=== PATIENT | male | born 1940 | race Caucasian/White ===

== ENCOUNTER → 2018-07-22 | Outpatient (CLI) | payer MEDICARE ==
--- NOTE | 2018-07-23 13:38 | PE ---
Nuclear medicine PET/CT HISTORY: Solitary pulmonary nodule Patient received 15.2 mCi F-18 FDG intravenously and delayed scanning was performed from the skull ba se to the mid thighs. Localization and attenuation correction CT scan was performed. No comparisons available Neck and CHEST: There is no cervical, mediastinal, axillary, or hilar adenopathy. Calcified pleural p laques are present suggestive of asbestos related disease. There are proximal bands within the lungs, somewhat nodular density in the right upper lobe towards the apex on axial image 51 measures 9 mm in size, there is no associated hypermetabolic uptake. Posterior lateral to the aorta and there is a fo cus with some suggestion of air bronchograms and pleural-based soft tissue density measuring approxim ately 18 mm but without associated hypermetabolic uptake. No pleural or pericardial effusion. There a re coronary artery calcifications. ABDOMEN: No evident liver mass. Patient is post cholecystectomy. Large cystic foci associated with th e kidneys. No retroperitoneal adenopathy or ascites. Atheromatous changes are present within the aort a. Surgical clips present in the right groin region. Small recurrent right inguinal hernia, left ingu inal hernia also noted in both containing some fat. Patient is post prostatectomy surgical clips pres ent in the pelvis. Osseous structures show degenerative changes at the right sacroiliac joint, there is facet arthropath y and degenerative disc change in the lumbar spine. Mild hypermetabolic uptake is noted in the right ilium, questionable asymmetric density in the bone at this level, SUV is 2.6. IMPRESSION: Findings compatible with asbestos related disease. No suspicious hypermetabolic uptake wi thin the chest. Mild uptake noted in the right ilium, follow-up MRI or bone scan could be performed t o assess for stability. No definitive mass present. Postop changes and additional findings above.
== END ==
LOC: RADPETMAIN 14:04
PROVIDERS: ATTEND Family Medicine
DX: R91.8 Other nonspecific abnormal finding of lung field (principal); Z77.090 Contact with and (suspected) exposure to asbestos
CPT/HCPCS: 78815; A9552

== ENCOUNTER 2022-06-17 09:03 | Day surgery (SDC) | payer MEDICARE ==
[~2022-06-17 09:03] MED LIST: ATROPINE SULFATE 0.4 MG/ML 1 ML VIAL IM ONE; LIDOCAINE VISCOUS 300 MG/15 ML CUP MUCOUS MEM ONE; SODIUM CHLORIDE 0.9% 1,000 ML IV SCH
[2022-06-17] MEDS ORDERED: LACTATED RINGERS 1,000 ML IV SCH (09:29)
[2022-06-17] MEDS ORDERED: ONDANSETRON 4 MG/2 ML VIAL IVP PRN (09:29)
[2022-06-17] MEDS ORDERED: DEXAMETHASONE SOD PHOSPHATE 4 MG/ML 1 ML VIAL IV ONE (09:29)
[2022-06-17] MEDS ORDERED: fentaNYL (PF) 50 MCG/ML 2 ML AMP IV PRN (09:29)
[2022-06-17] MEDS ORDERED: LIDOCAINE 1% (10MG/ML) FOR IV START INTRADERMA PRN (09:29)
[2022-06-17 09:51] LABS: Glucose,Whole Blood 94 mg/dL (70-110)
--- NOTE | 2022-06-17 10:43 | CT ---
EXAMINATION TYPE: CT Chest lisy Frederick Protocol DATE OF EXAM: 06/17/2022 COMPARISON: PET/CT 07/22/2018 HISTORY: pre-op bronch CT DLP: 635 mGycm Automated exposure control for dose reduction was used. FINDINGS: Exam is for bronchoscopy planning and not for diagnostic purposes. Bilateral calcified pleural plaques redemonstrated. Suggestive of asbestosis related disease. No pneu mothorax or pleural effusion. Development of medial left lower lobe consolidation with air bronchogra ms. This is in similar location to previously demonstrated nodular density. Patchy scattered subpleur al reticular opacities redemonstrated. Similar biapical pleural-parenchymal scarring and paraseptal e mphysematous changes. The airway appears patent. Scattered calcification of the aorta. The heart is normal size without pericardial effusion. Coronary arterial calcifications. No mediastinal or hilar adenopathy identified. Small hiatal hernia. Visualization of right superior pole renal 5.9 cm cyst. Additional smaller syste m showed within the left kidney. Postcholecystectomy changes. No acute osseous abnormality. No aggressive osseous lesion. Flowing anterior osteophytosis of the tho racic spine consistent with DISH. IMPRESSION: ABOVE.
[2022-06-17] MEDS ORDERED: fentaNYL (PF) 50 MCG/ML 2 ML AMP ONE (11:18)
[2022-06-17] MEDS ORDERED: ePHEDrine 50 MG/ML 1 ML VIAL ONE (11:18)
[2022-06-17] MEDS ORDERED: LIDOCAINE 2% INJ 20 MG/ML (2 ML VIAL) ONE (11:18)
[2022-06-17] MEDS ORDERED: PROPOFOL 10 MG/ML 20 ML VIAL IV ONE (11:18)
[2022-06-17] MEDS ORDERED: SUCCINYLCHOLINE CHLORIDE 200 MG/10 ML VIAL IV ONE (11:18)
[2022-06-17 12:03] LABS: Glucose,Whole Blood 111 mg/dL (70-110)
[2022-06-17 12:06] VITALS: TEMP 97.2
[2022-06-17 13:01] VITALS: RESP 18
[2022-06-17 13:12] VITALS: BP 141/61; PULSE 69
--- NOTE | 2022-06-17 13:37 | PCN ---
PROCEDURE NOTE PROCEDURES PERFORMED: Bronchoscopy; airway examination; therapeutic lavage; BAL, right upper lobe; brushes and biopsies, right upper lobe; transbronchial biopsies, right upper lobe. PREOPERATIVE DIAGNOSES: Lung mass, right upper lobe, rule out cancer/mesothelioma. POSTOPERATIVE DIAGNOSES: Lung mass, right upper lobe, rule out cancer/mesothelioma. HVAC TECH: First surgical endoscopist: Dr. Maggy Kelly CRNA. ANESTHESIA PROVIDED: General anesthesia. DESCRIPTION OF PROCEDURE: The patient's procedure was done in room #1 Endoscopy. There was informed consent and universal timeout. The patient was anesthetized by the anesthesia group, and placed on mechanical ventilator. The bronchoscope adapter was connected to the endotracheal tube. Next, the bronchoscope was inserted through the bronchoscope adapter, down through the endotracheal tube, down into the trachea. The mid and lower portions of the trachea appeared relatively normal. Tracheal vita was sharp. The rest of the airway examination was unremarkable. Next, we used the Jade Magnet electromagnetic navigational system to localize lesion in the right upper lobe. We had good localization. It was in the anterior segment of the right upper lobe. Next, multiple transbronchial biopsies were done in the right upper lobe under direct visualization and electromagnetic guidance. Next we did wash this in the right upper lobe and we also did brushes and we used a brush biopsy device to get additional sampling in the right upper lobe. Again, there was excellent localization. The patient tolerated the procedure well. He was very stable throughout the procedure. The specimens were taken to the laboratory for analysis. There was no immediate complication. I did speak to the patient's son after the procedure and explained the procedure to him. I will await the pathology. MMODL / IJN: [id number] /
--- NOTE | 2022-06-17 13:40 | XR ---
EXAMINATION TYPE: XR chest 1V portable DATE OF EXAM: 06/17/2022 Comparison: Correlation CT chest 06/17/2022 Clinical History: 81-year-old male post geraldo. bronch Findings: The heart is normal size. There is hyperinflation with background COPD. Additional fibrotic change in multiple bilateral calcified pleural plaques. Focal opacity right midlung and medial left base. No a ppreciable pneumothorax or pleural effusion. 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 Focal airspace diseas e right mid lung and additional airspace disease/volume loss at the medial left base. No appreciable pneumothorax.
[2022-06-17 23:12] LABS: Appearance,BF Bloody
== END 2022-06-17 14:15 | disposition home or self-care (01) ==
LOC: ORWHC2ENDO 09:03
PROVIDERS: ATTEND Internal Medicine Critical Care Medicine
DX: R91.8 Other nonspecific abnormal finding of lung field (principal); I10 Essential (primary) hypertension; N28.1 Cyst of kidney, acquired; Z79.899 Other long term (current) drug therapy; Z98.890 Other specified postprocedural states
CPT/HCPCS: 31628; 88104; 88108; 88305; 88173; 89050; 88342; 88341; 87070; 87205; 71045; 71250; 31624; 31627; J0330; J3010; J2704; J2001; 31623; 31625

== ENCOUNTER → 2022-07-08 | Day surgery (SDC) | payer MEDICARE ==
[2022-07-05 12:54] VITALS: BMI 20.3
[~2022-07-08] MED LIST changes: +LACTATED RINGERS 1,000 ML IV ONE; +LACTATED RINGERS 1,000 ML IV SCH; -LIDOCAINE VISCOUS 300 MG/15 ML CUP MUCOUS MEM ONE; -SODIUM CHLORIDE 0.9% 1,000 ML IV SCH
[2022-07-08 12:09] VITALS: BP 168/72; PULSE 78; RESP 16; TEMP 98.3
[2022-07-08 12:10] LABS: Glucose,Whole Blood 115 mg/dL (70-110)
--- NOTE | 2022-07-08 13:10 | CT ---
EXAMINATION TYPE: CT Chest wo con Veran Protocol DATE OF EXAM: 07/08/2022 COMPARISON: 06/17/2022 HISTORY: veran protocol CT DLP: [address] of the chest was performed with lung and mediastinal window settings submitted shira Frederick protocol for bronchoscopy planning and not for diagnostic purposes.. The lack of contrast li mits evaluation of the vascular, mediastinal and parenchymal structures including the upper abdomen. LUNGS: Calcified pleural plaques are redemonstrated compatible with asbestos related pleural disease. There is a new airspace infiltrate in the right upper lobe as well as stable consolidation left lowe r lobe with associated cystic bronchiectasis. Scattered groundglass infiltrates are seen throughout b oth lung agudelo. Subpleural fibrosis noted bilaterally greatest within the upper lobes. There are higinio cified nodules seen as well compatible with remote granulomatous disease. MEDIASTINUM/AMINA: Thoracic aorta is of normal caliber with limited evaluation given lack of contrast . The heart is not enlarged. No evidence for mediastinal mass. No lymph nodes greater than 1cm. UPPER ABDOMEN: Hypoattenuating renal lesions are compatible with the renal cysts. The gallbladder is surgically absent. OTHER: No significant other abnormality. IMPRESSION: 1. 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 2. New area of airspace consolidation right upper lobe with air bronchograms may reflect pneumonia. C orrelate clinically. Stable consolidative process left lower lobe with associated volume loss and cys tic bronchiectasis.
== END ==
LOC: ORWHC2ENDO 11:00
PROVIDERS: ATTEND Internal Medicine Critical Care Medicine
DX: R91.1 Solitary pulmonary nodule (principal); J47.9 Bronchiectasis, uncomplicated; J84.10 Pulmonary fibrosis, unspecified; J92.0 Pleural plaque with presence of asbestos; Z77.090 Contact with and (suspected) exposure to asbestos; Z90.49 Acquired absence of other specified parts of digestive tract; N28.9 Disorder of kidney and ureter, unspecified; Z79.82 Long term (current) use of aspirin; Z79.4 Long term (current) use of insulin; I10 Essential (primary) hypertension; E78.5 Hyperlipidemia, unspecified; E11.9 Type 2 diabetes mellitus without complications; Z85.46 Personal history of malignant neoplasm of prostate; Z83.3 Family history of diabetes mellitus; Z81.8 Family history of other mental and behavioral disorders; Z86.69 Personal history of other diseases of the nervous system and sense organs; Z87.891 Personal history of nicotine dependence
CPT/HCPCS: 71250

== ENCOUNTER 2022-07-28 10:03 | Day surgery (SDC) | payer MEDICARE ==
[2022-07-26 15:37] VITALS: BMI 20.3
[~2022-07-28 10:03] MED LIST changes: +DEXAMETHASONE SOD PHOSPHATE 4 MG/ML 1 ML VIAL IV ONE; +HYDROmorphone 0.5 MG/0.5 ML SYRINGE IVP PRN; -LACTATED RINGERS 1,000 ML IV ONE; +LIDOCAINE 1% (10MG/ML) FOR IV START INTRADERMA PRN; +LIDOCAINE VISCOUS 300 MG/15 ML CUP MUCOUS MEM ONE; +MIDAZOLAM 2 MG/2 ML VIAL IV PRN; +ONDANSETRON 4 MG/2 ML VIAL IVP ONE; +SODIUM CHLORIDE 0.9% 1,000 ML IV SCH
[2022-07-28 10:40] LABS: Glucose,Whole Blood 114 mg/dL (70-110)
--- NOTE | 2022-07-28 11:22 | CT ---
EXAMINATION TYPE: CT Chest lisy Frederick Protocol DATE OF EXAM: 07/28/2022 COMPARISON: Most recent chest CT July 08, 2022 HISTORY: Prior abnormal CT and PET/CT. CT DLP: 1090.8 mGycm Automated exposure control for dose reduction was used. FINDINGS: CT thorax performed without contrast in full inspiration and expiration. Exam is for bronch oscopy planning and not for diagnostic purposes. Calcified pleural plaques bilaterally are redemonstrated. Persistent focal consolidation with air br onchograms posterior left lower lobe. Background mild to moderate emphysematous change with scattered parenchymal fibrosis greatest in the periphery and greatest in the upper lungs redemonstrated. Sever e three-vessel coronary artery calcification is again seen. Simple thin-walled cysts scattered throug hout both kidneys along with cholecystectomy clips are redemonstrated. Bridging osteophytes in the th oracic spine are redemonstrated IMPRESSION: As above.
[2022-07-28] MEDS ORDERED: NEOSTIGMINE 1 MG/ML 10 ML VIAL ONE (12:01)
[2022-07-28] MEDS ORDERED: GLYCOPYRROLATE 0.2 MG/ML 2 ML VIAL ONE (12:01)
[2022-07-28] MEDS ORDERED: PROPOFOL 10 MG/ML 20 ML VIAL IV ONE (12:01)
[2022-07-28] MEDS ORDERED: LIDOCAINE 2% INJ 20 MG/ML (2 ML VIAL) ONE (12:01)
[2022-07-28] MEDS ORDERED: fentaNYL (PF) 50 MCG/ML 2 ML AMP ONE (12:01)
[2022-07-28] MEDS ORDERED: SUCCINYLCHOLINE CHLORIDE 200 MG/10 ML VIAL IV ONE (12:01)
[2022-07-28] MEDS ORDERED: LACTATED RINGERS 1,000 ML IV ONE (13:07)
[2022-07-28 13:12] VITALS: TEMP 97
--- NOTE | 2022-07-28 13:40 | XR ---
EXAMINATION TYPE: XR chest 1V portable DATE OF EXAM: 07/28/2022 Comparison: 06/17/2022 Clinical History: 81-year-old male POST BRONCH Findings: Heart normal size. Atherosclerotic arch calcifications. Biapical pleural-parenchymal scarring. Extens merlin pleural-based calcifications on both sides. Hyperinflation. Mild patchy retrocardiac opacity is n oted. Focal opacity periphery of the right midlung remains as well. Impression: 1. COPD, interstitial fibrosis, and bilateral pleural-based calcifications, possible sequela of prior asbestos exposure. 2. Airspace disease at the left base/retrocardiac region has partially improved. Patchy retrocardiac opacity remains. 3. Persistent focal opacity periphery of the right midlung. Consider either PET/CT or ongoing CT foll ow-up to exclude the possibility of neoplasm. No appreciable pneumothorax.
[2022-07-28 14:10] VITALS: RESP 18
[2022-07-28 14:29] VITALS: BP 145/70; PULSE 66
--- NOTE | 2022-07-28 19:20 | PCN ---
PROCEDURE NOTE PROCEDURE PERFORMED: Navigational bronchoscopy. PREOPERATIVE DIAGNOSIS: Abnormal CT scan lesions, right upper lobe and left lower lobe. POSTOPERATIVE DIAGNOSIS: Abnormal CT scan lesions, right upper lobe and left lower lobe, rule out cancer. SAFETY AIDE: Dr. Gutiérrez. DELI COOK: Dr. Maggy Kelly. The patient's procedure took place in room #1. The Anesthesiology Team including Dr. Radha David provided general anesthesia. There was informed consent and universal timeout. The patient underwent electromagnetic navigational bronchoscopy. After the patient was anesthetized, the bronchoscope was inserted through the bronchoscope adapter, connected to the endotracheal tube. We used a Veran navigational system to identify 2 lesions, 1 in the right upper lobe and 1 in the left lower lobe. In the right upper lobe, we did multiple transbronchial biopsies, subsequent to that, we did needle brushes and washes in the right upper lobe. In addition, after that, we did multiple transbronchial biopsies in the left lower lobe. Again, brushes, needle biopsies and washes in the left lower lobe as well. We had good localization for both lesions in the right upper lobe and left lower lobe. The Veran device did allow us to get excellent localization. We had good samples from both areas. The bronchoscope was then removed after there was adequate hemostasis, and there was only minimal bleeding in both locations. The patient tolerated the procedure well and the patient will be recovered. A chest x-ray will be ordered to rule out pneumothorax. There was no immediate complication. MMODL / IJN: [id number] /
== END 2022-07-28 14:41 | disposition home or self-care (01) ==
LOC: ORWHC2ENDO 10:03
PROVIDERS: ATTEND Internal Medicine Critical Care Medicine
DX: J44.9 Chronic obstructive pulmonary disease, unspecified (principal); J84.10 Pulmonary fibrosis, unspecified; I10 Essential (primary) hypertension; E11.9 Type 2 diabetes mellitus without complications; Z79.899 Other long term (current) drug therapy
CPT/HCPCS: 31623; 31624; 31625; 31627; 71045; 71250; 87070; 87102; 87116; 87205; 87206; 87252; 89050

== ENCOUNTER → 2022-08-18 | Outpatient (CLI) | payer MEDICARE ==
--- NOTE | 2022-08-18 17:33 | MR ---
EXAMINATION TYPE: MR brain wo/w con DATE OF EXAM: 08/18/2022 COMPARISON: None HISTORY: Lung cancer treatment CONTRAST: Performed utilizing 7 mL intravenous Gadavist gadolinium contrast. TECHNIQUE: Multiplanar, multiecho imaging on a 3.0 Kathy magnet is performed through the brain. Stud y is performed within 24 hours of arrival to the hospital. The craniovertebral junction is normal. The pituitary is normal. Diffusion-weighted imaging is performed. No abnormal hyperintensity is present to suggest an acute i ntracranial infarct or acute ischemic change. There are a few scattered subcortical and deep white matter changes greater in the frontal lobes best visualized on the inversion recovery weighted sequences. These are nonspecific and can be related to microvascular ischemic change. Ventricles and sulci are prominent for the patient age. No suspicious enhancement is evident. IMPRESSIONS: 1. No suspicious abnormalities to suggest metastatic disease. 2. Scattered punctate chronic appearing microvascular ischemic type changes with age related atrophy.
== END | disposition home or self-care (01) ==
LOC: RADMRIMAIN 14:40
PROVIDERS: ATTEND Internal Medicine Hematology & Oncology
DX: C34.11 Malignant neoplasm of upper lobe, right bronchus or lung (principal); C34.32 Malignant neoplasm of lower lobe, left bronchus or lung; G31.1 Senile degeneration of brain, not elsewhere classified; I67.82 Cerebral ischemia
CPT/HCPCS: 70553; A9585